=== PATIENT | male | born 2000 | race Caucasian/White ===

== ENCOUNTER 2022-04-01 07:18 | Emergency (ER) | payer MEDICAID, SELFPAY ==
[2022-04-01 07:24] VITALS: BP 138/70; PULSE 58; RESP 16; TEMP 36.7; O2SAT 98
--- NOTE | 2022-04-01 07:46 | ED.GENADUL_ITS ---
Discharge Plan Disposition Patient Disposition: HOME Condition: Stable Discharge Details Chief Complaint: Orthopedic Clinical Impression: Sprain of right wrist, Fall involving snowboard as cause of accidental injury, Injury of left shoulder Primary Care Provider: None,None ED Provider: Ishaan Longo Home Meds and New Rx's Prescriptions: No Action dextroamphetamine-amphetamine [Adderall] 30 mg Tablet 30 mg PO DAILY Discharge Instructions Instructions: Shoulder Dislocation (ED), Wrist Sprain (ED) Additional Instructions: Please take ibuprofen over the counter. Take 600mg by mouth every 6 hours as needed for pain. Please use wrist splint over the next 2 weeks. If pain persists, please follow- up with orthopedics or return to the emergency department for reevaluation. Please contact your primary care physician to arrange follow-up. Return to the ER immediately for any worsening or new concerning symptoms. Medical Decision Making 22-year-old male here after multiple falls while skateboarding and snowboarding over the past couple weeks with FOOSH injury to his right wrist as well as possible subluxation of his left shoulder 2 weeks ago. I discussed diagnostic and treatment plan with the patient. He provided informed refusal of x-ray imaging and would prefer to splint his wrist and monitor for improvement. I encouraged him to follow-up should he have persistent pain or new concerning symptoms. Shoulder exam is fairly benign and there is no indication for x-ray imaging at this time. Plan for ibuprofen and wrist splint. Usual customary instructions were reviewed with the patient. Patient has no primary care physician and I will refer him to establish care. HPI General Mode of arrival: ambulatory . Date/Time Provider Initiated Documentation: 04/01/22 07:22 . Limitations to Documentation: no limitations . Information obtained by: patient . HPI Narrative: 22-year-old male presents with chief complaint of right wrist pain. Patient notes he fell skateboarding about a week ago and landed on outstretched hand. He had initial pain that was improving and then fell again with similar mechanism and exacerbated his injury. He fell again yesterday and again exacerbated his injury. He notes pain ulnar wrist that is moderate and worse with extension. No numbness or tingling. No significant swelling. Patient also notes he fell about 2 weeks ago and thinks he dislocated his left shoulder. He states he relocated it. He has had some mild pain in his shoulder since that fall that was improving until recent fall a couple days ago where he thinks he exacerbated this injury. Related Data Home Medications Medication Instructions Recorded Confirmed dextroamphetamine-amphetamine 30 30 mg PO DAILY 04/01/22 04/01/22 mg tablet (Adderall) Allergies Allergy/AdvReac Type Severity Reaction Status Date / Time No Known Allergies Allergy Unverified 04/01/22 07:31 General Stated Complaint: Orthopedic LIZZETTE: 3 Review of Systems Musculoskeletal Musculoskeletal: Reports as per HPI Neurologic Neurologic: Denies sensory deficit PFSH All Active Problems Sprain of right wrist (Acute) Fall involving snowboard as cause of accidental injury (Acute) Injury of left shoulder (Acute) Social History Smoking/Tobacco Use Status: Former Tobacco Use Smoking risk assessment performed?: Yes Alcohol Intake: current Alcohol Intake frequency: a few times a week Alcohol type: beer Drug use: Daily Substance use type: marijuana Do you feel safe at home: Yes Do you feel safe in your relationship?: Yes Exam Const General: cooperative and no acute distress HENMT Head: normocephalic and atraumatic Cardio Rate: regular rate and not tachycardic Rhythm: regular rhythm Skin General skin exam: no ecchymosis Trauma: no lacerations Neuro General: patient alert, patient awake and tone normal Extrem General: no edema Right upper extremity: elbow/forearm Details: normal to inspection, wrist Details: tenderness Location: of the distal ulna, normal ROM, normal vascular exam and radial pulse present; no swelling, no crepitus and no deformity and hand Details: normal to inspection Left upper extremity: shoulder/upper arm Details: tenderness (rotator cuff anteriorly mild), axillary nerve sensory function normal and normal ROM; no ecchymosis, no crepitus and no deformity Course Vital Signs Vital signs: Vital Signs Temperature 36.7 C 04/01/22 07:24 Pulse 58 L 04/01/22 07:24 Respiratory Rate 16 04/01/22 07:24 Blood Pressure 138/70 04/01/22 07:24 Pulse Oximetry 98 04/01/22 07:24 Temperature 36.7 C 04/01/22 07:24 Temperature Source Oral 04/01/22 07:24 Pulse 58 L 04/01/22 07:24 Respiratory Rate 16 11/06/22 07:24 Respiratory Effort Non-Labored 04/01/22 07:29 Blood Pressure 138/70 04/01/22 07:24 Blood Pressure Position Sitting 04/01/22 07:24 Pulse Oximetry 98 04/01/22 07:24 Oxygen Delivery Method Room Air 04/01/22 07:24 Oxygen Flow Rate 0 04/01/22 07:24 Pain Level 6 04/01/22 07:36 PAWSS Have you Been Recently Intoxicated or Drunk Within the Last 30 days?: Yes Have you Ever Experienced Previous Episodes of Alcohol Withdrawal?: No Have you ever Experienced Withdrawal Seizures?: No Have you ever Experienced Delirium Tremens(DT)s?: No Have you ever undergone Alcohol Rehabilitation Treatment (i.e, inpt ot outpatient treatment programs)?: No Have you ever Experienced Blackouts?: Yes Have you ever Combined Alcohol with other Downers within the last 90 days?: No Have you ever Combined Alcohol with any other Substance of Abuse during the last 90 days?: No Positive Blood Alcohol level on Presentation? [PCS.BAL]: No Evidence of Increased Autonomic Activity (i.e. HR>120, tremor, sweating, agitat ion, nausea)?: No Result: 2
[2022-04-01] MEDS: Ibuprofen 600 MG TAB PO (07:53)
--- NOTE | 2022-04-01 18:04 | NUR.NOTE ---
Nursing Note: referral to cm to establish pcp
== END 2022-04-01 07:55 | disposition home or self-care (01) ==
PROVIDERS: Emergency Provider Student in an Organized Health Care Education/Training Program
DX: S63.591A Other specified sprain of right wrist, initial encounter (principal); V00.311A Fall from snowboard, initial encounter; S49.82XA Other specified injuries of left shoulder and upper arm, initial encounter
CPT/HCPCS: 29125; 99283